=== PATIENT | male | born 1960 | race Caucasian/White ===

== ENCOUNTER 2023-03-31 10:07 | Outpatient (CLI) | payer OTHER, SELFPAY | END 2023-03-31 10:08 | disposition home or self-care (01) | LOC: NFLDREF 04-02 19:38 | PROVIDERS: PCP Family Medicine; Referring Provider Family Medicine; Visit Provider Family Medicine | DX: E11.9 Type 2 diabetes mellitus without complications (principal); N40.1 Benign prostatic hyperplasia with lower urinary tract symptoms; R35.1 Nocturia; Z76.89 Persons encountering health services in other specified circumstances; Z12.5 Encounter for screening for malignant neoplasm of prostate; Z13.6 Encounter for screening for cardiovascular disorders | CPT/HCPCS: 80061; 82043; 82570; 84153 ==

== ENCOUNTER 2024-06-16 08:54 | Outpatient (CLI) | payer OTHER, SELFPAY | END 2024-06-16 08:55 | disposition home or self-care (01) | LOC: NFLDREF 06-23 02:22 | PROVIDERS: PCP Family Medicine; Referring Provider Family Medicine; Visit Provider Family Medicine | DX: E11.9 Type 2 diabetes mellitus without complications (principal); N40.1 Benign prostatic hyperplasia with lower urinary tract symptoms; R35.1 Nocturia; G47.00 Insomnia, unspecified; K21.9 Gastro-esophageal reflux disease without esophagitis; Z13.6 Encounter for screening for cardiovascular disorders | CPT/HCPCS: 80053; 80061; 82043; 82570; G0103 ==